=== PATIENT | male | born 1955 | race Caucasian/White ===

== ENCOUNTER 2018-01-12 08:28 | Observation (INO) | payer BC, OTHER ==
[~2018-01-12] VITALS: Ht 170.2 cm; Wt 114.3 kg
[2018-01-12] MEDS ORDERED: CEFTRIAXONE SODIUM 1 GM ONE (08:51)
[2018-01-12 09:05] LABS: BASOPHILS % (AUTO) 0.5 % (0.0-5.0); EOSINOPHILS % (AUTO) 2.9 % (0.0-8.0); HEMATOCRIT 46.3 % (42-54); LYMPHOCYTES % (AUTO) 16.4 % (21.0-51.0); MEAN CORPUSCULAR HEMOGLOBIN 31.4 pg (27.0-33.0); MEAN CORPUSCULAR HGB CONC 34.9 g/dL (32.0-36.0); MEAN CORPUSCULAR VOLUME 90.1 fL (79-99); MONOCYTES % (AUTO) 11.8 % (3.0-13.0); NEUTROPHILS % (AUTO) 68.4 % (40.0-77.0); PLATELET COUNT (AUTO) 220 K/uL (130-400); RED BLOOD CELL COUNT(AUTO) 5.14 MIL/uL (4.50-6.20); RED CELL DISTRIBUTION WIDTH 13.4 % (11.0-15.5); WHITE BLOOD COUNT (AUTO) 6.7 K/uL (4.8-10.8)
[2018-01-12 09:11] LABS: POTASSIUM 3.9 mmol/L (3.5-5.1)
[2018-01-12] MEDS ORDERED: PANTOPRAZOLE SODIUM 40 MG TABLET.DR PO ONE (11:42)
[2018-01-12 15:29] VITALS: BP 148/89
[2018-01-12 20:00] VITALS: BP 124/86
[2018-01-12 23:21] VITALS: BP 132/81
[2018-01-13 03:23] VITALS: BP 121/84
[2018-01-13] MEDS ORDERED: CETI-101 PO (03:50)
[2018-01-13] MEDS ORDERED: VALS80TA29 PO (03:50)
[2018-01-13] MEDS ORDERED: PANT40TA25 PO (03:50)
[2018-01-13] MEDS ORDERED: MONT10TA21 PO (03:50)
[2018-01-13] MEDS ORDERED: MONTELUKAST SODIUM 10 MG TAB ONE (04:17)
[2018-01-13] MEDS: DIPHENHYDRAMINE HCL 25 MG CAPSULE PO PRN ×2 (04:20→10:41)
[2018-01-13] MEDS ORDERED: PANTOPRAZOLE SODIUM 40 MG TABLET.DR PO SCH ×2 (07:30→09:00)
[2018-01-13 08:00] VITALS: BP 125/80
[2018-01-13] MEDS ORDERED: VALSARTAN 80 MG PO SCH (09:00)
[2018-01-13] MEDS ORDERED: CETIRIZINE HCL 5 MG TABLET PO SCH (09:00)
[2018-01-13] MEDS ORDERED: CEFTRIAXONE SODIUM 1 GM IVP SCH (09:00)
[2018-01-13] MEDS ORDERED: CEFD300C3 PO (10:16)
[2018-01-13 11:00] VITALS: BP 115/79
[2018-01-13] MEDS ORDERED: MONTELUKAST SODIUM 10 MG TAB PO SCH (21:00)
== END 2018-01-13 14:30 | disposition home or self-care (01) ==
LOC: EDH 08:28 → EDHIP 10:40 → 3DH 14:41
PROVIDERS: ADMIT Family Medicine; ATTEND Family Medicine
DX: L03.114 Cellulitis of left upper limb (principal); K21.9 Gastro-esophageal reflux disease without esophagitis; J45.909 Unspecified asthma, uncomplicated; I10 Essential (primary) hypertension; E78.00 Pure hypercholesterolemia, unspecified; Z79.899 Other long term (current) drug therapy
CPT/HCPCS: 36415; 80048; 85025; 96374; 99285; A4218; G0378 ×28; J0696 ×2; Q0163 ×2